=== PATIENT | female | born 1955 | race Caucasian/White ===

== ENCOUNTER 2019-03-03 17:44 | Emergency (ER) | payer MEDICARE, OTHER, SELFPAY ==
--- NOTE | 2019-03-03 17:51 | DI.RAD.S_ITS ---
PROCEDURE: XR CHEST 1V INDICATIONS: chest pain, syncope, hx seizure TECHNIQUE: One view of the chest was acquired. COMPARISON: [facility], , CHEST 1 VIEW, 08/24/2015, 14:49. [facility], CR, CHEST 2 VIEW, 08/10/2013, 14:37. [facility], , CHEST 2 VIEW, 01/28/2013, 15:57. [facility], , CHEST 2 VIEW, 09/21/2009, 15:44. FINDINGS: Surgical changes and devices: None. Lungs and pleura: No pleural effusion pneumothorax. There is prominence of pulmonary vasculature bilaterally. There are mild bilateral perihilar and bibasilar pulmonary opacities. Mediastinum: Mediastinal contours appear normal. Heart size is normal. Bones and chest wall: No suspicious bony lesions. Overlying soft tissues appear unremarkable. IMPRESSION: Mild bilateral perihilar and right basilar pulmonary opacities likely representing atelectasis, less likely aspiration or early pulmonary edema. Dictated by: Don Olvera M.D. on 03/03/2019 at 18:56 Approved by: Don Olvera M.D. on 03/03/2019 at 18:58
[2019-03-03 18:00] VITALS: TEMP 36.8
[2019-03-03 18:04] LABS: Add Manual Diff / Slide Review NO; Basophils Absolute Auto 100 /uL (0-100); Basophils Percent Auto 1.5 % (0-2); Eosinophils Absolute Auto 100 /uL (0-450); Eosinophils Percent Auto 0.8 % (2-4); Hematocrit 29.2 % (36-46); Hemoglobin 8.5 g/dL (12.0-16.0); Lymphocytes Absolute Auto 1600 /uL (1100-4500); Lymphocytes Percent Auto 25.4 % (25-40); Mean Corpuscular HGB Conc 29.2 % (30-36); Mean Corpuscular Hemoglobin 19.2 PG (26-34); Mean Corpuscular Volume 65.7 fL (80-100); Monocytes Absolute Auto 500 /uL (0-900); Monocytes Percent Auto 7.8 % (3-14); Neutrophils Absolute Auto 4000 /uL (1500-7000); Neutrophils Percent Auto 64.5 % (50-75); Platelet Count 739 X10^3/uL (150-400); Red Blood Cell Count 4.45 X10^6/uL (4.0-5.2); Red Cell Distribution Width 22.2 % (11.6-14.8); White Blood Cell Count 6.3 X10^3/uL (4.5-11.0)
--- NOTE | 2019-03-03 18:04 | ED.CHESTPAIN ---
HPI - Chest Pain General Chief Complaint: Chest Pain Stated Complaint: SYNCOPAL EPISODE Time Seen by Provider: 03/03/19 17:52 Source: patient Mode of arrival: ambulatory Limitations: no limitations History of Present Illness HPI narrative: 63F nonsmoker with history of migraines and fibromyalgia presents with the chief complaint of headache which started at 1630 and is achy in nature, she states it is occipital and slightly worse than her normal. She denies provocation, palliation or radiation. She denies any blurred or double vision or focal neurologic findings such as numbness, weakness or tingling. Additionally she has recently had about 1 week's worth of upper respiratory complaints including runny nose, sneezing and cough. She has developed sharp and stabbing anterior chest pain which is worse with a deep breath and palpation. She denies any injury. She denies any production of sputum let alone, hemoptysis; she is not dizzy nor weak or lightheaded MD complaint: chest pain Onset (ago): day(s) Duration: intermittent Pain location: substernal Severity: mild Quality: sharp Pain radiation: none Relieving factors: rest Exacerbating factors: movement Context: recent illness Related Data Previous Rx's Medication Instructions Recorded Disabled Parking Permit dev #1 03/21/16 duloxetine [Cymbalta] 60 mg PO QDAY #90 cap 05/14/16 onabotulinumtoxinA [Botox] 100 unit INJ STAT #2 vial 12/23/16 topiramate [Topamax] 50 mg PO BID #180 tab 12/31/16 zolpidem 5 mg PO HS #15 tab 12/31/16 alprazolam 0.25 mg PO SEE INSTRUCTIONS #60 tab 02/12/17 nitrofurantoin macrocrystal 50 mg PO BID #10 cap 03/03/19 Allergies Allergy/AdvReac Type Severity Reaction Status Date / Time cefuroxime Allergy Intermediate RASH, Unverified 11/19/17 13:06 SOB,THROAT SWELLING ciprofloxacin Allergy Unknown DELERIUM Unverified 11/19/17 13:06 Sulfa (Sulfonamide Allergy Unknown RASH Unverified 11/19/17 13:06 Antibiotics) tramadol Allergy Unknown AGITATION Unverified 11/19/17 13:06 codeine AdvReac Unknown HEADACHE Unverified 11/19/17 13:06 Review of Systems Constitutional Denies chills, Denies fever(s), Reports headache(s), Denies lethargy and Denies weakness Eyes Denies change in vision, Denies eye discharge, Denies irritation and Denies loss of vision ENT Ears, Nose, Mouth, and Throat: Denies change in voice, Reports headache(s), Denies neck pain and Denies sore throat Cardiovascular Reports chest pain, Denies irregular heart rhythm, Denies lightheadedness, Denies palpitations, Denies dyspnea, Denies dyspnea on exertion and Denies orthopnea Respiratory Reports cough, Reports pain on inspiration, Denies dyspnea, Denies dyspnea on exertion and Denies wheezing Gastrointestinal Gastrointestinal: Denies abdominal pain, Denies change in bowel habits, Denies diarrhea, Denies nausea and Denies vomiting Genitourinary Denies hematuria, Denies flank pain, Denies urinary incontinence and Denies urinary urgency Musculoskeletal Denies neck pain Integumentary/Breasts Denies pruritus, Denies erythema, Denies rash and Denies wounds Neurologic Denies confusion, Reports headache(s), Denies loss of vision and Denies weakness Psychiatric Denies anxiety, Denies confusion, Denies depression, Denies homicidal ideation and Denies suicidal ideation Endocrine Denies palpitations Hematologic/Lymphatic Denies easy bruising Allergic/Immunologic Denies wheezing [facility] History of repair of hiatal hernia Status post knee surgery Family History (Updated 01/12/17 @ 00:00 by Conversion Provider) Grandfather Heart disease Grandmother Mental health problem Stroke Mother Age: 85 Cancer Heart disease Hypertension High cholesterol Family History Grandfather Heart disease Grandmother Mental health problem Stroke Mother Age: 85 Cancer Heart disease Hypertension High cholesterol Exam Narrative Exam Narrative: GENERAL: 63-year-old female appears younger than stated age, anxious, sitting in a dark room with sunglasses on. HEAD: Atraumatic. Normocephalic. No temporal or scalp tenderness. EYES: Pupils equal round and reactive. Extraocular motions intact. No scleral icterus. No injection or drainage. ENT: Nose without bleeding, purulent drainage or septal hematoma. Throat without erythema, tonsillar hypertrophy or exudate. Uvula midline. Airway patent. NECK: Trachea midline. No JVD or lymphadenopathy. Supple, nontender, no meningeal signs. CARDIOVASCULAR: Regular rate and rhythm without murmurs, gallops, or rubs. Anterior chest pain as sharp in nature, reproducible with palpation RESPIRATORY: Clear to auscultation. Breath sounds equal bilaterally. No wheezes, rales, or rhonchi. GASTROINTESTINAL: Abdomen soft, non-tender, nondistended. No hepato-splenomegaly, or palpable masses. No guarding. EXTREMITIES: No clubbing, cyanosis, or edema. No joint tenderness, effusion, or edema noted. BACK: Nontender without deformity or crepitance. No flank tenderness. NEURO: AOx3. SKIN: No rash or erythema. NIH Stroke Scale 1a. LOC: Patient is alert and keenly responsive (0) 1b. LOC Questions: Patient answers both LOC questions accurately (0) 1c. LOC Commands: Patient performs both tasks correctly (0) 2. Best Gaze: Normal (0) 3. Visual: No visual loss (0) 4. Facial palsy: Normal symmetrical movements (0) 5. Motor arm: No drift (0) 6. Motor leg: No drift (0) 7. Limb ataxia: Absent (0) 8. Sensory: Normal (0) 9. Best language: No aphasia; normal (0) 10. Dysarthria: Normal (0) 11. Extinction and inattention: No abnormality (0) NIHSS: 0 Initial Vital Signs Initial Vital Signs: Vital Signs Temperature 98.2 F 03/03/19 18:00 Course Orders Ordered: ED Orders 03/03/19 22:50 Urine Culture Stat Urine Microscopic Stat Discontinued Medications Dexamethasone (Decadron) 10 mg IV NOW ONE Stop: 03/03/19 18:17 Last Admin: 03/03/19 19:02 Dose: 10 mg Sodium Chloride (Normal Saline 0.9%) 1,000 mls @ 1,000 mls/hr IV BOLUS ONE Stop: 03/03/19 18:49 Last Infusion: 03/03/19 20:42 Dose: 0 mls/hr Admin: 03/03/19 19:01 Dose: 1,000 mls/hr Sodium Chloride (Normal Saline 0.9%) 1,000 mls @ 1,000 mls/hr IV BOLUS ONE Stop: 03/03/19 19:15 Last Infusion: 03/03/19 20:43 Dose: 0 mls/hr Admin: 03/03/19 19:38 Dose: 1,000 mls/hr Ketorolac Tromethamine (Toradol) 15 mg IV NOW ONE Stop: 03/03/19 18:17 Last Admin: 03/03/19 19:02 Dose: 15 mg Ondansetron HCl (Zofran) 4 mg IV Q4HR PRN PRN Reason: Nausea And Vomiting Last Admin: 03/03/19 19:38 Dose: 4 mg Vital Signs - 8 hr 03/03/19 20:52 03/03/19 21:30 03/03/19 22:00 Temperature Pulse Rate 80 79 70 Respiratory Rate 16 11 L 12 Blood Pressure Blood Pressure [Left Arm] 124/61 124/65 126/65 Pulse Oximetry 98 96 95 03/03/19 23:37 Temperature 98.5 F Pulse Rate 69 Respiratory Rate 16 Blood Pressure 117/74 Blood Pressure [Left Arm] Pulse Oximetry 100 MDM - Chest Pain Lab Data Result diagrams: 03/03/19 17:50 03/03/19 17:50 Lab Results 03/03/19 03/03/19 03/03/19 Range/Units 17:50 17:50 17:50 WBC 6.3 (4.5-11.0) X10^3/uL RBC 4.45 (4.0-5.2) X10^6/uL Hgb 8.5 L (12.0-16.0) g/dL Hct 29.2 L (36-46) % MCV 65.7 L (80-100) fL MCH 19.2 L (26-34) PG MCHC 29.2 L (30-36) % RDW 22.2 H (11.6-14.8) % Plt Count 739 H (150-400) X10^3/uL Neut % (Auto) 64.5 (50-75) % Lymph % (Auto) 25.4 (25-40) % Owen % (Auto) 7.8 (3-14) % Eos % (Auto) 0.8 L (2-4) % Baso % (Auto) 1.5 (0-2) % Neut # (Auto) 4000 (9930-9866) /uL Lymph # (Auto) 1600 (5313-6025) /uL Owen # (Auto) 500 (0-900) /uL Eos # (Auto) 100 (0-450) /uL Baso # (Auto) 100 (0-100) /uL RBC Morphology See below Polychromasia 1+ H Hypochromasia 1+ H Poikilocytosis 2+ H Anisocytosis 2+ H Microcytosis 1+ H Ovalocytes 2+ H PT 13.2 H (10.1-12.7) SECONDS INR 1.1 (0.9-1.3) APTT 39 H (26.4-36.2) SECONDS D-Dimer (<230) ng/mL Sodium 143 (137-145) mmol/L Potassium 3.9 (3.4-5.1) mmol/L Chloride 104 (98-107) mmol/L Carbon Dioxide 26 (22-32) mmol/L BUN 28 H (7-17) mg/dL Creatinine 1.20 H (0.52-1.04) mg/dL Estimated GFR 45.1 L (>60) mL/min BUN/Creatinine Ratio 23.3 H (6-22) Glucose 74 L (80-110) mg/dL Calcium 9.2 (8.4-10.2) mg/dL Total Bilirubin 0.3 (0.2-1.3) mg/dL AST 23 (14-36) IU/L ALT 26 (9-52) IU/L Alkaline Phosphatase 87 (38-126) U/L Total Creatine Kinase 23 L (30-135) U/L CK-MB (CK-2) TNP CK-MB (CK-2) Rel Index TNP Troponin I < 0.012 (0.01-0.034) ng/mL B-Natriuretic Peptide < 100 (<100) Total Protein 7.1 (6.3-8.2) g/dL Albumin 4.0 (3.5-5.0) g/dL Globulin 3.1 (1.7-4.1) g/dL Albumin/Globulin Ratio 1.3 (1.0-2.8) Prolactin (3.0-18.6) ng/mL Urine RBC (0-5/HPF) Urine WBC (0-5/HPF) Ur Squamous Epith Cells (0-5/HPF) Urine Bacteria (None) Ur Culture Indicated? 07/24/19 07/24/19 07/24/19 Range/Units 17:50 17:50 22:50 WBC (4.5-11.0) X10^3/uL RBC (4.0-5.2) X10^6/uL Hgb (12.0-16.0) g/dL Hct (36-46) % MCV (80-100) fL MCH (26-34) PG MCHC (30-36) % RDW (11.6-14.8) % Plt Count (150-400) X10^3/uL Neut % (Auto) (50-75) % Lymph % (Auto) (25-40) % Owen % (Auto) (3-14) % Eos % (Auto) (2-4) % Baso % (Auto) (0-2) % Neut # (Auto) (2925-3889) /uL Lymph # (Auto) (9992-1647) /uL Owen # (Auto) (0-900) /uL Eos # (Auto) (0-450) /uL Baso # (Auto) (0-100) /uL RBC Morphology Polychromasia Hypochromasia Poikilocytosis Anisocytosis Microcytosis Ovalocytes PT (10.1-12.7) SECONDS INR (0.9-1.3) APTT (26.4-36.2) SECONDS D-Dimer 299 H (<230) ng/mL Sodium (137-145) mmol/L Potassium (3.4-5.1) mmol/L Chloride (98-107) mmol/L Carbon Dioxide (22-32) mmol/L BUN (7-17) mg/dL Creatinine (0.52-1.04) mg/dL Estimated GFR (>60) mL/min BUN/Creatinine Ratio (6-22) Glucose (80-110) mg/dL Calcium (8.4-10.2) mg/dL Total Bilirubin (0.2-1.3) mg/dL AST (14-36) IU/L ALT (9-52) IU/L Alkaline Phosphatase (38-126) U/L Total Creatine Kinase (30-135) U/L CK-MB (CK-2) CK-MB (CK-2) Rel Index Troponin I (0.01-0.034) ng/mL B-Natriuretic Peptide (<100) Total Protein (6.3-8.2) g/dL Albumin (3.5-5.0) g/dL Globulin (1.7-4.1) g/dL Albumin/Globulin Ratio (1.0-2.8) Prolactin 20.2 H (3.0-18.6) ng/mL Urine RBC None seen (0-5/HPF) Urine WBC 1-5/hpf (0-5/HPF) Ur Squamous Epith Cells 0-1 /hpf (0-5/HPF) Urine Bacteria Many (>30) H (None) Ur Culture Indicated? Specimen cultured Urine Dip Bedside Urine Glucose 100 mg/dl Bedside Urine Bilirubin - Negative Bedside Urine Ketone +/- 5 Urine Specific [place] 1.010 Bedside Urine Occult Blood +/- Bedside Urine pH 7.5 Bedside Urine Protein ++ 100 Bedside Urine Urobilinogen 2+ 4mg Bedside Urine Nitrite + Positive Bedside Urine Leukocytes +++ 500 Esterase MDM Narrative Medical decision making narrative: Multiple etiologies for patient's symptoms considered including: [Migraine headache thought very likely given the patient's history in her presentation. CT of the head negative and neurologic exam unremarkable. Syncope versus seizure. Patient states that she routinely has syncopal episodes or seizure as a consequence of her complex migraine pattern. Her chest pain is unlikely to be ischemic as it is sharp, stabbing and reproducible with deep breath and palpation, last week she had sneezing and coughing with an upper respiratory infection. She shows marked improvement after the above-stated therapies] Patient's symptoms improved or duration of stay with above-stated therapies. Findings and discharge diagnosis discussed with patient/family followed by verbalization of understanding Return precautions discussed with patient/family whom verbalize understanding. Discharge Plan Departure Patient Disposition: Home Clinical Impression: Acute UTI, Acute chest wall pain Migraine Qualifiers: Migraine type: unspecified Status migrainosus presence: without status migrainosus Intractability: not intractable Qualified Code(s): G43.909 - Migraine, unspecified, not intractable, without status migrainosus Discharge Date/Time: 03/03/19 23:38 Interventions: ED Discharge Assessment Last Done: 03/03/19 23:37 Instructions: DI for Migraine, DI for Urinary Tract Infection (UTI), DI for Atypical Chest Pain Activity Restrictions/Additional Instructions: *You have been diagnosed with [acute migraine headache with possible subsequent seizure, urinary tract infection, atypical chest pain likely due to recent upper respiratory infection] *What to do: *Take medications as directed *Follow up with your primary care provider in 2-3 days, call for an appointment. Let them know you were seen in the Emergency Department and that we ask that you be seen in follow up *Return to ER if you should have any new, worsening or concerning symptoms, such as [ ] Prescriptions: New nitrofurantoin macrocrystal 50 mg capsule 50 mg PO BID Qty: 10 RF: 0 No Action Disabled Parking Permit Qty: 1 RF: 0 duloxetine [Cymbalta] 60 MG capsule,delayed release(DR/EC) 60 mg PO QDAY Qty: 90 RF: 3 onabotulinumtoxinA [Botox] 100 UNIT recon soln 100 unit INJ STAT Qty: 2 RF: 0 topiramate [Topamax] 50 MG tablet 50 mg PO BID Qty: 180 RF: 0 zolpidem 5 MG tablet 5 mg PO HS Qty: 15 RF: 0 alprazolam 0.25 MG tablet 0.25 mg PO SEE INSTRUCTIONS Qty: 60 RF: 0 Referrals: Guanaco Engel MD [Primary Care Provider] -
--- NOTE | 2019-03-03 18:16 | DI.CT.S_ITS ---
PROCEDURE: CT HEAD/BRAIN WO CON INDICATIONS: PATE, syncope TECHNIQUE: Noncontrast 4.5 mm thick angled axial sections acquired from the foramen magnum to the vertex, with coronal and sagittal reformats. For radiation dose reduction, the following was used: automated exposure control, adjustment of mA and/or kV according to patient size. COMPARISON: [facility], CT, THORAX WITH CONTRAST, 08/31/2015, 14:05. [facility], CT, PE STUDY (CTA CHEST), 08/05/2013, 15:15. [facility], CT, ABDOMEN/PELVIS WITH CONTRAST, 04/03/2009, 8:56. FINDINGS: Image quality: Excellent. CSF spaces: Basal cisterns are patent. No extra-axial fluid collections. Ventricles are normal in size and shape. Brain: No midline shift. No intracranial masses or hemorrhage. Kumari-white matter interface is normal. Skull and face: Calvarium and visualized facial bones are intact, without suspicious lesions. Sinuses: Visualized sinuses and mastoids are clear. IMPRESSION: No acute intracranial abnormality. Dictated by: Don Olvera M.D. on 03/03/2019 at 18:53 Approved by: Don Olvera M.D. on 03/03/2019 at 18:56
[2019-03-03 18:18] LABS: Alanine Aminotransferase 26 IU/L (9-52); Albumin Globulin Ratio 1.3 (1.0-2.8); Alkaline Phosphatase 87 U/L (38-126); Aspartate Aminotransferase 23 IU/L (14-36); BUN Creatinine Ratio 23.3 (6-22); Bilirubin Total 0.3 mg/dL (0.2-1.3); Blood Urea Nitrogen 28 mg/dL (7-17); Calcium 9.2 mg/dL (8.4-10.2); Carbon Dioxide 26 mmol/L (22-32); Chloride 104 mmol/L (98-107); Creatine Kinase 23 U/L (30-135); Estimated Glomerular Filt Rate 45.1 mL/min (>60); Globulin 3.1 g/dL (1.7-4.1); Glucose 74 mg/dL (80-110); HEMOLYSIS < 15 (0-50); Potassium 3.9 mmol/L (3.4-5.1); Sodium 143 mmol/L (137-145); Total Protein 7.1 g/dL (6.3-8.2)
[2019-03-03 18:20] LABS: B Type Natriuretic Peptide < 100 (<100)
[2019-03-03 18:22] LABS: INR 1.1 (0.9-1.3); Prothrombin Time 13.2 SECONDS (10.1-12.7)
[2019-03-03 18:25] LABS: Anisocytosis 2+; Hypochromasia 1+; Microcytosis 1+; PTT Partial Thromboplastin Tim 39 SECONDS (26.4-36.2); Poikilocytosis 2+
[2019-03-03 18:26] LABS: Ovalocytes 2+; Polychromasia 1+
[2019-03-03 18:29] LABS: Troponin I < 0.012 ng/mL (0.01-0.034)
[2019-03-03 18:34] LABS: D Dimer 299 ng/mL (<230)
[2019-03-03 18:35] LABS: Prolactin 20.2 ng/mL (3.0-18.6)
[2019-03-03] MEDS: SODIUM CHLORIDE 0.9% 1,000 ML 1000 ML IV ×2 (19:01→19:38)
[2019-03-03] MEDS: DEXAMETHASONE 10 MG/ML VIAL IV (19:02)
[2019-03-03] MEDS: KETOROLAC 60 MG/2 ML VIAL 15 MG IV (19:02)
[2019-03-03 19:30] VITALS: BP 118/53; PULSE 71; RESP 12; O2SAT 100
[2019-03-03] MEDS: ONDANSETRON 4 MG/2 ML INJ IV (19:38)
[2019-03-03 20:52] VITALS: BP 124/61; PULSE 80; RESP 16; O2SAT 98
[2019-03-03 21:30] VITALS: BP 124/65; PULSE 79; RESP 11; O2SAT 96
[2019-03-03 22:00] VITALS: BP 126/65; PULSE 70; RESP 12; O2SAT 95
[2019-03-03 22:55] LABS: RBC Urine None Seen (0-5/HPF)
[2019-03-03 23:09] LABS: Bacteria Urine Many (>30); Culture Indicated Urine Specimen Cultured; Squamous Epithelial Cell Urine 0-1 /HPF (0-5/HPF); WBC Urine 1-5/HPF (0-5/HPF)
[2019-03-03 23:37] VITALS: BP 117/74; PULSE 69; RESP 16; TEMP 36.9; O2SAT 100
--- NOTE | 2019-03-04 11:44 | PC.NURSE ---
Pharmacy call from [facility] about prescription. Per Dr Huston, should be 100mg of macrobid not 50mg. Discussed with pharmacist as no indication why only 50mg in his note
== END 2019-03-03 23:38 | disposition home or self-care (01) ==
PROVIDERS: Emergency Medicine; Emergency Provider Emergency Medicine; Family Provider Family Medicine; PCP Family Medicine
DX: N39.0 Urinary tract infection, site not specified (principal); R07.89 Other chest pain; G43.909 Migraine, unspecified, not intractable, without status migrainosus
CPT/HCPCS: 36591; 70450; 71045; 80053; 81003; 81015; 82550; 83880; 84146; 84484; 85025; 85379; 85610; 85730; 87077; 87086; 87186; 93005; 96361; 96374; 96375; 99284; J1100; J1885; J2405

== ENCOUNTER → 2019-07-20 07:51 | Outpatient (CLI) | payer MEDICARE, OTHER, SELFPAY ==
--- NOTE | 2019-07-20 | DI.US.S_ITS ---
PROCEDURE: US PELVIC COMPLETE INDICATIONS: WEIGHT LOSS*POST MENOPAUSAL VAGINAL BLEEDING* TECHNIQUE: Real-time scanning was performed of the pelvic organs, with image documentation. Additional endovaginal scanning was necessary due to incomplete visualization of the adnexal and endometrial structures by transabdominal scanning. COMPARISON: [facility], CT, CT ABDOMEN PELVIS W CON, 07/20/2019, 8:22. FINDINGS: Transabdominal scanning: Limited scanning through the kidneys shows no hydronephrosis. No pathologic free abdominal or pelvic fluid. Endovaginal scanning: Uterus: Uterus is normal in size at 4.4 x 2.6 x 3.8 cm. The endometrium measures 10 mm in combined thickness. Multiple non-shadowing internal echogenic foci present within the endometrial complex. Ovaries: Postmenopausal ovaries not identified. No adnexal masses. Incidental finding of multiple gallstones and no obvious gallbladder wall thickening. IMPRESSION: 1. Abnormal appearance of the endometrial complex which is thickened and there are multiple non-shadowing echogenic foci seen centrally and underlying neoplastic process including endometrial carcinoma cannot be excluded. Endometrial biopsy is recommended. 2. Ovaries not identified. 3. Cholelithiasis. Dictated by: Prashanth BARRETO Interpreted: Natalie Joseph MD on 07/20/2019 at 12:51 Approved by: Natalie Joseph M.D. on 07/20/2019 at 15:47
--- NOTE | 2019-07-20 | DI.CT.S_ITS ---
PROCEDURE: CT ABDOMEN PELVIS W CON INDICATIONS: WEIGHT LOSS*VAGINAL BLEEDING*RIGHT UPPER QUAD PAIN TECHNIQUE: After the administration of intravenous contrast, 5 mm thick sections acquired from the diaphragm to the symphysis. 5 mm coronal and sagittal reformats were acquired. For radiation dose reduction, the following was used: automated exposure control, adjustment of mA and/or kV according to patient size. COMPARISON: [facility], CT, ABDOMEN/PELVIS WITH CONTRAST, 04/03/2009, 8:56. FINDINGS: Image quality: Excellent. ABDOMEN: Lung bases: Lung bases are clear. Heart size is normal. Solid organs: Liver is mildly enlarged. Punctate low attenuation focus is noted in the posterior right hepatic lobe on series 2 image 27, unchanged compared to prior exam. Gallbladder demonstrates multiple dependent calcifications without wall thickening. Biliary system is non dilated. Pancreas enhances normally. Spleen is normal in size and enhancement. No adrenal nodules. Kidneys demonstrate normal size and enhancement, without hydronephrosis. Peritoneum and bowel: There is a circular focus of small bowel within the anterior abdomen, having an intussuscepted appearance. This is best seen on series 2 image 59. No free fluid or air. No obstruction. Significant colonic stool is present. Nodes and vessels: No retroperitoneal or mesenteric adenopathy by size criteria. Aorta and inferior vena cava are normal in size. Miscellaneous: No ventral hernias. PELVIS: Genitourinary: Bladder wall thickness is normal. Miscellaneous: No inguinal hernias or adenopathy. Bones: No suspicious bony lesions. No vertebral body compression fractures. IMPRESSION: 1. Focal loop of small bowel within the anterior abdomen has an appearance of intussusception. While benign transient intussusceptions can occur in adults, that also raises concern for luminal mass with subsequent intussusception. Recommend correlation patient history as well as laboratory markers. Short interval imaging followup is recommended to document resolution and exclude presence of underlying mass. Alternatively, GI consult may be obtained. No obstruction. Dictated by: Natalie Joseph M.D. on 07/20/2019 at 18:02 Approved by: Natalie Joseph M.D. on 07/20/2019 at 18:08
== END ==
PROVIDERS: Family Provider Family Medicine; PCP Family Medicine; Referring Provider Obstetrics & Gynecology; Visit Provider Nurse Practitioner Family
DX: R10.11 Right upper quadrant pain (principal); R63.4 Abnormal weight loss; N93.8 Other specified abnormal uterine and vaginal bleeding; R16.0 Hepatomegaly, not elsewhere classified; R93.89 Abnormal findings on diagnostic imaging of other specified body structures; K80.20 Calculus of gallbladder without cholecystitis without obstruction
CPT/HCPCS: 74177; 76830; 76856; Q9967

== ENCOUNTER → 2020-10-09 12:12 | Outpatient (CLI) | payer MEDICARE, OTHER, SELFPAY ==
[2020-10-09 12:44] LABS: Blood Urea Nitrogen 26 mg/dL (7-17); Calcium 9.4 mg/dL (8.4-10.2); Carbon Dioxide 25 mmol/L (22-32); Chloride 107 mmol/L (98-107); Estimated Glomerular Filt Rate > 60.0 mL/min (>60); Glucose 102 mg/dL (80-110); HEMOLYSIS < 15 (0-50); Sodium 139 mmol/L (137-145)
--- NOTE | 2020-10-09 13:03 | DI.CT.S_ITS ---
PROCEDURE: CT ABDOMEN PELVIS W CON INDICATIONS: Upper abdominal pain, unspecified TECHNIQUE: After the administration of oral and intravenous contrast, 5 mm thick sections acquired from the diaphragms to the symphysis. 5 mm thick coronal and sagittal reformats were performed. For radiation dose reduction, the following was used: automated exposure control, adjustment of mA and/or kV according to patient size. COMPARISON: [facility], CT, CT ABDOMEN PELVIS W CON, 07/20/2019, 8:22. FINDINGS: Image quality: Excellent. ABDOMEN: Lung bases: Lung bases are clear. Heart size is normal. Solid organs: Liver is normal in size and enhancement. Gallbladder surgically absent. Biliary system is non-dilated. Pancreas enhances normally. Spleen is normal in size and enhancement. No adrenal nodules. There is incidentally noted rotation of the right kidney. No hydronephrosis. Simple appearing presumed left renal cyst. Postsurgical changes involving the stomach at the GE junction. There is a small hiatal hernia. Postoperative changes and suture line involving left upper quadrant small bowel loops is incidentally noted. No transition point to suggest obstruction. No free fluid or air. Appendix is not clearly identified however no suspicious pericecal inflammatory changes are seen.Large amount of fluid present within the right colon. Additional fluid seen in the left colon. There is minimal if any pericolonic fat stranding. Large amount of stool. There are scattered air-fluid levels. Nodes and vessels: No retroperitoneal or mesenteric adenopathy. Aorta and inferior vena cava are normal in caliber. Miscellaneous: No ventral hernias. PELVIS: Genitourinary: Bladder wall thickness is normal. Miscellaneous: No inguinal hernias or adenopathy. Bones: Chronic left pubic ramus fracture. Spondylosis and facet arthropathy. No acute fracture. Diffuse osteopenia IMPRESSION: Large amount of fluid present within the colon (in particular the hepatic flexure and right colon) and scattered air-fluid levels, which raise the possibility of a low-grade enterocolitis, and or malabsorption. No evidence of bowel obstruction Small hiatal hernia. Additional chronic and incidental findings as above. Dictated by: Bernard De Guzman M.D. on 10/09/2020 at 13:24 Approved by: Bernard De Guzman M.D. on 10/09/2020 at 14:06
== END ==
PROVIDERS: Family Provider Family Medicine; PCP Family Medicine; Referring Provider Family Medicine; Visit Provider Family Medicine
DX: Z01.812 Encounter for preprocedural laboratory examination (principal); R10.10 Upper abdominal pain, unspecified; R63.4 Abnormal weight loss; Z87.19 Personal history of other diseases of the digestive system; Z98.84 Bariatric surgery status; Z90.49 Acquired absence of other specified parts of digestive tract; K44.9 Diaphragmatic hernia without obstruction or gangrene
CPT/HCPCS: 36415; 74177; 80048; Q9967

== ENCOUNTER → 2023-01-27 11:10 | Outpatient (CLI) | payer MEDICARE, OTHER, SELFPAY ==
--- NOTE | 2023-01-27 | DI.US.S_ITS ---
LIMITED ULTRASOUND OF LEFT BREAST: 01/27/2023 CLINICAL: Patient returns today to evaluate a focal asymmetry in the left breast. Comparison is made to exams dated: 01/27/2023 mammogram - [facility], 01/08/2023 mammogram - [facility], 12/22/2014 mammogram, 04/30/2012 mammogram, and 03/07/2011 mammogram - [facility]. Real-time ultrasound of the left breast 8-11 o'clock region was performed. Kumari scale images of the real-time examination were reviewed. No significant abnormalities were seen sonographically in the left breast. IMPRESSION: NEGATIVE There is no sonographic evidence of malignancy. A 1 year screening mammogram is recommended. Exam findings were conveyed to the patient. This exam was interpreted at Station ID: [id number]. Electronically Signed By: Jos eDaniel Galvin M.D. slc/:01/27/2023 13:40:00 letter sent: Normal Exam Ultrasound BI-RADS: 1 Negative
--- NOTE | 2023-01-27 | DI.MG.S_ITS ---
UNILATERAL LEFT DIGITAL DIAGNOSTIC MAMMOGRAM 3D/2D WITH ADDITIONAL VIEWS: 01/27/2023 CLINICAL: Additional evaluation requested from prior study. Comparison is made to exams dated: 01/08/2023 mammogram - [facility], 12/22/2014 mammogram, and 04/30/2012 mammogram - [facility]. There are scattered areas of fibroglandular density in the left breast (category b / 25%-50% glandular tissue). There is a fat containing asymmetry in the left breast middle depth medial region seen on the craniocaudal view only. This is not seen in additional views. No other significant masses or calcifications are seen in the breast. IMPRESSION: INCOMPLETE: NEEDS ADDITIONAL IMAGING EVALUATION The fat containing asymmetry in the left breast most likely is fibroglandular tissue and is indeterminate. A targeted ultrasound is recommended and will immediately follow. Based on the Tyrer Cuzick model (a risk assessment model) the patient's lifetime risk is 5.9% and her 10 year risk is 3.5%. According to the ACR, ACS, and NCCN guidelines, an annual breast MRI exam along with mammogram is recommended if the patient's lifetime risk is 20% or greater. This exam was interpreted at Station ID: [id number]. NOTE: For mammograms, a report in lay terms will be sent to the patient. Approximately 15% of breast malignancies will not be visualized mammographically. In the management of a palpable breast mass, a negative mammogram must not discourage biopsy of a clinically suspicious lesion. Electronically Signed By: Jose Daniel Galvin M.D. slc/:01/27/2023 12:38:22 ACR BI-RADS Category 0: Incomplete 3340F
== END ==
PROVIDERS: Family Provider Family Medicine; PCP Family Medicine; Referring Provider Family Medicine; Visit Provider Family Medicine
DX: R92.8 Other abnormal and inconclusive findings on diagnostic imaging of breast (principal)
CPT/HCPCS: 76642; 77065; G0279

== ENCOUNTER → 2023-11-19 | Outpatient (CLI) | payer MEDICARE, OTHER, SELFPAY ==
--- NOTE | 2023-11-19 10:06 | DI.RAD.S_ITS ---
Bone Density Report Name: KIRAN CARRANZA Age: 68 Sex: Female Ethnicity: White Date of : 1955 Indication: postmenopausal; screening for osteoporosis; Referring Provider: UNSPECIFIED Study: Bone densitometry was performed. Exam Date: November 19, 2023 Accession number: [id number] Bone Density: Region BMD T-score Z-score Classification AP Spine(L1-L4) 0.955 -0.8 1.3 Normal Total Forearm (Left) 0.384 -3.6 -1.6 Osteoporosis 1/3 Forearm (Left) 0.505 -3.1 -1.1 Osteoporosis UD Forearm (Left) 0.272 -3.0 -1.5 Osteoporosis World Health Organization criteria for BMD impression classify patients as: Normal (T-score at or above -1.0), Osteopenia (T-score between -1.0 and -2.5), or Osteoporosis (T-score at or below -2.5). Previous Exams: -- Region Exam Age BMD T-score BMD Change BMD Change Date g/cm2 vs Baseline vs Previous -- AP Spine (L1-L4) 11/19/2023 68 0.955 -0.8 -0.232 (-19.6%)# -0.092 (-8.8%)# 03/07/2011 55 1.047 0.0 -0.140 (-11.8%)* -0.140 (-11.8%)* 02/24/2009 53 1.187 1.3 -- *Denotes significance at 95% confidence level, LSC for AP Spine = 0.022 g/cm2 # Denotes dissimilar scan types or analysis methods Impression: The patient has normal bone mass. No significant bone loss was observed. Discussion: BONE DENSITY IS ABOVE THE MINIMUM DESIRABLE LEVEL AT ALL SKELETAL SITES TESTED. This patient's bone mineral density is above the minimum desirable level (T-score -1.0 or better) at all sites measured. The patient should follow a healthful lifestyle (good nutrition with adequate calcium and vitamin D, and appropriate weight-bearing exercise). Follow-Up: Consider repeating this study in 5 years or sooner if there is some new clinical indication. Reported by: STAR YING M.D. on 11/19/2023 10:06:00 AM.
== END ==
PROVIDERS: Family Provider Family Medicine; PCP Family Medicine; Referring Provider Physician Assistant; Visit Provider Physician Assistant
DX: Z78.0 Asymptomatic menopausal state (principal); E55.9 Vitamin D deficiency, unspecified
CPT/HCPCS: 77080; 77081